=== PATIENT | female | born 1985 | race Caucasian/White ===

== ENCOUNTER 2017-12-23 11:24 | Outpatient (CLI) | payer OTHER ==
[2017-12-23] MEDS ORDERED: PREN1TAB69 PO (16:54)
[2017-12-23] MEDS ORDERED: METH10TA6 PO (16:56)
== END 2017-12-23 12:20 | disposition home or self-care (01) ==
LOC: LDOP 11:24
PROVIDERS: ATTEND Obstetrics & Gynecology Maternal & Fetal Medicine
DX: Z34.83 Encounter for supervision of other normal pregnancy, third trimester (principal); Z3A.40 40 weeks gestation of pregnancy
CPT/HCPCS: 59025; 99201; G0463

== ENCOUNTER 2017-12-23 15:18 | Inpatient (IN) | payer OTHER ==
[~2017-12-23] VITALS: Ht 165.1 cm; Wt 83.8 kg
[2017-12-23] MEDS ORDERED: NEWBORN KIT ONE (15:27)
[2017-12-23] MEDS ORDERED: OXYTOCIN 30U/ 0.9% NaCL 500ML 500 ML ONE ×2 (15:28→21:08)
[2017-12-23] MEDS ORDERED: LIDOCAINE 1%, 20ML ONE (15:28)
[2017-12-23] MEDS ORDERED: MISOPROSTOL 200 MCG TABLET ONE (15:28)
[2017-12-23] MEDS: LACTATED RINGERS 1,000 ML IV SCH ×2 (15:31→21:11)
[2017-12-23] MEDS ORDERED: OXYTOCIN 30U/ 0.9% NaCL 500ML 500 ML IV PRN ×2 (15:31→19:18)
[2017-12-23] MEDS ORDERED: D5%-LACTATED RINGERS 1,000 ML IV SCH (15:31)
[2017-12-23] MEDS ORDERED: AMPICILLIN 2 GM in SODIUM CHLORIDE 0.9% 100 ML IVPB STA (15:31)
[2017-12-23] MEDS ORDERED: OXYTOCIN 30U/ 0.9% NaCL 500ML 500 ML IV ONE (15:31)
[2017-12-23] MEDS ORDERED: FENTANYL PF 100 MCG/2ML ONE (15:37)
[2017-12-23 15:45] VITALS: BP 125/61
[2017-12-23 16:00] LABS: BASOPHILS # (AUTO) 0.06 x10^3/uL (0-0.1); BASOPHILS % (AUTO) 0 % (0-1); EOSINOPHILS % (AUTO) 0 % (1-7); LYMPHOCYTES # (AUTO) 2.17 x10^3/uL (1-3.4); LYMPHOCYTES % (AUTO) 14 % (22-44); MD NO; MEAN CORPUSCULAR HEMOGLOBIN 28.8 pg (27.0-34.8); MEAN CORPUSCULAR HGB CONC 33.3 g/dL (32.4-35.8); MEAN CORPUSCULAR VOLUME 86.4 fL (80-100); MEAN PLATELET VOLUME 8.6 fL (7.4-10.4); MONOCYTES % (AUTO) 6 % (2-9); NEUTROPHILS # (AUTO) 12.36 x10^3/uL (1.8-6.8); NEUTROPHILS % (AUTO) 80 % (42-75); PLATELET COUNT 280 x10^3/uL (130-400); RED CELL DISTRIBUTION WIDTH 12.9 % (9.6-15.2)
[2017-12-23] MEDS ORDERED: TERBUTALINE 1 MG/ML, 1ML SQ PRN (16:00)
[2017-12-23] MEDS ORDERED: FENTANYL PF 100 MCG/2ML IV PRN (16:00)
[2017-12-23] MEDS ORDERED: PLEASE ENTER HEIGHT AND WEIGHT MC SCH (16:00)
[2017-12-23] MEDS ORDERED: CALCIUM CARBONATE 500 MG TAB.CHEW PO PRN (16:00)
[2017-12-23] MEDS ORDERED: FENTANYL PF 100 MCG/2ML IVPush PRN (16:00)
[2017-12-23] MEDS ORDERED: ONDANSETRON 2MG/ML, 2ML IVPush PRN (16:00)
[2017-12-23] MEDS ORDERED: LIDOCAINE-MPF 2% ,5ML ONE (16:22)
[2017-12-23] MEDS ORDERED: FENTANYL/BUPIV./NS/PF 250 ML EPIDCONT ONE (16:23)
[2017-12-23] MEDS ORDERED: PREN1TAB69 PO (16:54)
[2017-12-23] MEDS ORDERED: LACTATED RINGERS 1,000 ML IV SCH (16:55)
[2017-12-23] MEDS ORDERED: FENTANYL/BUPIV./NS/PF 250 ML EPIDCONT SCH (16:55)
[2017-12-23] MEDS ORDERED: METH10TA6 PO (16:56)
[2017-12-23] MEDS ORDERED: LACTATED RINGERS 1,000 ML IVBOLUS PRN (17:00)
[2017-12-23] MEDS ORDERED: NALOXONE 0.4 MG/ML, 1ML IVPush PRN (17:00)
[2017-12-23] MEDS ORDERED: EPHEDRINE 50 MG/ML, 1ML IVPush PRN (17:00)
[2017-12-23] MEDS ORDERED: AMPICILLIN 1 GM in SODIUM CHLORIDE 0.9% 50 ML IVPB SCH (19:30)
[2017-12-23] MEDS ORDERED: ONDANSETRON 2MG/ML, 2ML ONE (19:36)
[2017-12-23] MEDS ORDERED: IBUPROFEN 600 MG TABLET ONE (21:08)
[2017-12-23] MEDS ORDERED: CALCIUM CARBONATE 500 MG TAB.CHEW ONE (22:12)
[2017-12-23] MEDS: IBUPROFEN 800 MG TABLET PO PRN (23:17)
[2017-12-23] MEDS ORDERED: IBUPROFEN 800 MG TABLET ONE (23:17)
[2017-12-23] MEDS: OXYTOCIN 30U/ 0.9% NaCL 500ML 500 ML IV SCH (23:18)
[2017-12-23] MEDS ORDERED: MISOPROSTOL 200 MCG TABLET SL PRN (23:30)
[2017-12-23] MEDS ORDERED: ACETAMINOPHEN 325 MG TABLET PO PRN (23:30)
[2017-12-23] MEDS ORDERED: OXYcodone IR 5MG TABLET PO PRN (23:30)
[2017-12-23] MEDS ORDERED: ONDANSETRON 2MG/ML, 2ML IV PRN (23:30)
[2017-12-23] MEDS ORDERED: DOCUSATE 100 MG CAPSULE PO PRN (23:30)
[2017-12-23] MEDS ORDERED: OXYcodone/APAP 5/325MG TABLET PO PRN (23:30)
[2017-12-24] VITALS (7 sets, daily range): BP systolic 103–120; BP diastolic 53–75
[2017-12-24] MEDS ORDERED: MISOPROSTOL 200 MCG TABLET PR PRN
[2017-12-24 05:36] LABS: MEAN CORPUSCULAR HEMOGLOBIN 29.7 pg (27.0-34.8); MEAN CORPUSCULAR VOLUME 87.3 fL (80-100); MEAN PLATELET VOLUME 9.3 fL (7.4-10.4); PLATELET COUNT 233 x10^3/uL (130-400); RED CELL DISTRIBUTION WIDTH 13.1 % (9.6-15.2)
[2017-12-24 06:21] LABS: MD YES
[2017-12-24 06:23] LABS: BAND#(MANUAL) 1.49 x10^3/uL; BANDS%(MANUAL) 8 % (0-7); LYMPH#(MANUAL) 2.23 x10^3/uL (1-3.4); LYMPHS% (MANUAL) 12 % (22-44); MONOS#(MANUAL) 0.74 x10^3/uL (0.3-2.7); MONOS% (MANUAL) 4 % (2-9); SEG#(MANUAL) 14.14 x10^3/uL (1.8-6.8); SEGS% (MANUAL) 76 % (42-75)
[2017-12-24 06:25] LABS: <PLATELET ESTIMATE> ADEQUATE; <PLT MORPHOLOGY> NORMAL PLT MORPH; ANISOCYTOSIS 1+
[2017-12-24] MEDS: IBUPROFEN 800 MG TABLET PO PRN ×2 (08:40→16:49)
[2017-12-24] MEDS ORDERED: PRENATAL VIT/IRON/FA 1 EACH TABLET PO SCH (09:00)
[2017-12-24] MEDS: OXYTOCIN 30U/ 0.9% NaCL 500ML 500 ML IV SCH ×2 (09:30→18:36)
[2017-12-24] MEDS ORDERED: FLU VACCINE PER PHARMACY IM ONE (16:00)
[2017-12-24] MEDS ORDERED: MEASLES,MUMPS&RUBELLA VACC/PF 0.5 ML SQ-VACC ONE (16:00)
[2017-12-24] MEDS ORDERED: DIPH,PERTUSS(ACELL),TET VAC/PF NC IM-VACC ONE (16:00)
[2017-12-24] MEDS ORDERED: FLU VACC QS2017-18 (36MOS+) UP/PF 0.5 ML IM-VACC ONE (17:00)
[2017-12-24] MEDS ORDERED: METHIMAZOLE 10 MG PO SCH (21:00)
[2017-12-25] MEDS: IBUPROFEN 800 MG TABLET PO PRN (02:14)
[2017-12-25] MEDS: OXYTOCIN 30U/ 0.9% NaCL 500ML 500 ML IV SCH (05:07)
[2017-12-25] MEDS ORDERED: IBUP-1222 PO (07:28)
[2017-12-25 07:45] VITALS: BP 97/60
== END 2017-12-25 09:00 | disposition home or self-care (01) | DRG 775 ==
LOC: LDOP 15:18 → LDIP 15:31 → 2NW 12-24 01:03
PROVIDERS: ADMIT Obstetrics & Gynecology Maternal & Fetal Medicine; ATTEND Obstetrics & Gynecology Maternal & Fetal Medicine
PROC: 10E0XZZ Delivery of Products of Conception, External Approach (ICD-10-PCS; principal; 2017-12-23)
PROC: 0KQM0ZZ Repair Perineum Muscle, Open Approach (ICD-10-PCS; 2017-12-23)
PROC: 3E0R3BZ Introduction of Anesthetic Agent into Spinal Canal, Percutaneous Approach (ICD-10-PCS; 2017-12-23)
PROC: 00HU33Z Insertion of Infusion Device into Spinal Canal, Percutaneous Approach (ICD-10-PCS; 2017-12-23)
PROC: 10907ZC Drainage of Amniotic Fluid, Therapeutic from Products of Conception, Via Natural or Artificial Opening (ICD-10-PCS; 2017-12-23)
DX: O24.429 Gestational diabetes mellitus in childbirth, unspecified control (principal); E05.90 Thyrotoxicosis, unspecified without thyrotoxic crisis or storm; O99.284 Endocrine, nutritional and metabolic diseases complicating childbirth; O70.1 Second degree perineal laceration during delivery; K90.0 Celiac disease; O75.89 Other specified complications of labor and delivery; Z37.0 Single live birth; Z3A.40 40 weeks gestation of pregnancy
CPT/HCPCS: 36415; 82962; 85025; 86850; 86900; 90686; 90715; J0290; J2405; J3010; J2590; J7120

== ENCOUNTER 2019-03-15 08:21 | Outpatient (CLI) | payer OTHER ==
[~2019-03-15 08:21] MED LIST: IBUP-1222 PO; METH10TA6 PO; PREN1TAB69 PO
== END 2019-03-15 23:59 | disposition home or self-care (01) ==
LOC: CARD 08:21
PROVIDERS: ATTEND Nurse Practitioner Family
DX: G56.03 Carpal tunnel syndrome, bilateral upper limbs (principal); G37.8 Other specified demyelinating diseases of central nervous system
CPT/HCPCS: 95886; 95908

== ENCOUNTER 2020-10-15 05:04 | Inpatient (IN) | payer OTHER ==
[~2020-10-15] VITALS: Ht 165.1 cm; Wt 85.9 kg
[2020-10-15] MEDS ORDERED: NEWBORN KIT ONE (05:09)
[2020-10-15] MEDS ORDERED: OXYTOCIN 30U/ 0.9% NaCL 500ML 500 ML ONE ×2 (05:09→13:29)
[2020-10-15] MEDS ORDERED: LIDOCAINE 1%, 20ML ONE (05:09)
[2020-10-15] MEDS ORDERED: MISOPROSTOL 200 MCG TABLET ONE ×2 (05:09)
[2020-10-15 05:24] VITALS: BP 134/60
[2020-10-15] MEDS ORDERED: FENTANYL PF 100 MCG/2ML IV PRN (05:30)
[2020-10-15] MEDS ORDERED: LEVO5TAB29 PO (05:30)
[2020-10-15] MEDS ORDERED: ONDANSETRON 2MG/ML, 2ML IVPush PRN (05:30)
[2020-10-15] MEDS ORDERED: FENTANYL PF 100 MCG/2ML IVPush PRN (05:30)
[2020-10-15] MEDS ORDERED: TERBUTALINE 1 MG/ML, 1ML IVPush PRN (05:30)
[2020-10-15] MEDS ORDERED: TERBUTALINE 1 MG/ML, 1ML SQ PRN (05:30)
[2020-10-15] MEDS ORDERED: OXYTOCIN 30U/ 0.9% NaCL 500ML 500 ML IV ONE (05:30)
[2020-10-15] MEDS ORDERED: OXYTOCIN 30U/ 0.9% NaCL 500ML 500 ML IV PRN (05:30)
[2020-10-15] MEDS: LACTATED RINGERS 1,000 ML IV SCH ×2 (05:47→08:12)
[2020-10-15 06:17] LABS: BASOPHILS % (AUTO) 0 % (0-1); EOSINOPHILS % (AUTO) 1 % (1-7); LYMPHOCYTES % (AUTO) 30 % (22-44); MEAN CORPUSCULAR HEMOGLOBIN 28.1 pg (27.0-34.8); MEAN CORPUSCULAR HGB CONC 33.3 g/dL (32.4-35.8); MEAN PLATELET VOLUME 9.4 fL (7.4-10.4); MONOCYTES % (AUTO) 7 % (2-9); NEUTROPHILS % (AUTO) 63 % (42-75); PLATELET COUNT 263 x10^3/uL (130-400); RED BLOOD COUNT 4.56 x10^6/uL (3.82-5.3); RED CELL DISTRIBUTION WIDTH 14.2 % (9.6-15.2)
[2020-10-15 06:18] LABS: MD NO
[2020-10-15] MEDS ORDERED: FENTANYL/BUPIV./NS/PF 250 ML EPIDCONT ONE (07:25)
[2020-10-15] MEDS ORDERED: BUPIVACAINE 0.25% ONE (07:26)
[2020-10-15] MEDS ORDERED: NALOXONE 0.4 MG/ML, 1ML IVPush PRN (07:30)
[2020-10-15] MEDS ORDERED: LACTATED RINGERS 1,000 ML IVBOLUS PRN (07:30)
[2020-10-15] MEDS ORDERED: EPHEDRINE 50 MG/ML, 1ML IVPush PRN (07:30)
[2020-10-15] MEDS ORDERED: FENTANYL/BUPIV./NS/PF 250 ML EPIDCONT SCH (07:30)
[2020-10-15] MEDS ORDERED: LACTATED RINGERS 1,000 ML IV SCH (07:30)
[2020-10-15] MEDS ORDERED: EPHEDRINE 50 MG/ML, 1ML ONE (07:57)
[2020-10-15] MEDS ORDERED: SIMETHICONE 80 MG CHEW TAB PO PRN (12:30)
[2020-10-15] MEDS ORDERED: MISOPROSTOL 200 MCG TABLET PR PRN (12:30)
[2020-10-15] MEDS ORDERED: CARBOPROST TROMETHAMINE 250 MCG/ML, 1ML IM PRN (12:30)
[2020-10-15] MEDS ORDERED: OXYcodone/APAP 5/325MG TABLET PO PRN ×2 (12:30)
[2020-10-15] MEDS ORDERED: DIPH,PERTUSS(ACELL),TET VAC/PF 0.5 ML IM-VACC PRN (12:30)
[2020-10-15] MEDS ORDERED: METHYLERGONOVINE 0.2 MG/ML IM PRN (12:30)
[2020-10-15] MEDS ORDERED: ACETAMINOPHEN 325 MG TABLET PO PRN ×2 (12:30)
[2020-10-15] MEDS: OXYTOCIN 30U/ 0.9% NaCL 500ML 500 ML IV SCH ×2 (13:34→19:06)
[2020-10-15] MEDS ORDERED: IBUPROFEN 600 MG TABLET ONE (13:35)
[2020-10-15] MEDS: IBUPROFEN 600 MG TABLET PO PRN ×2 (13:36→20:08)
[2020-10-15 14:15] VITALS: BP 97/60
[2020-10-15 20:00] VITALS: BP 123/77
[2020-10-15] MEDS: DOCUSATE 100 MG CAPSULE PO PRN (20:08)
[2020-10-15 20:28] LABS: BASOPHILS % (AUTO) 0 % (0-1); EOSINOPHILS % (AUTO) 0 % (1-7); LYMPHOCYTES % (AUTO) 20 % (22-44); MEAN PLATELET VOLUME 9.1 fL (7.4-10.4); MONOCYTES % (AUTO) 5 % (2-9); NEUTROPHILS % (AUTO) 74 % (42-75); PLATELET COUNT 235 x10^3/uL (130-400); RED BLOOD COUNT 4.25 x10^6/uL (3.82-5.3); RED CELL DISTRIBUTION WIDTH 14.8 % (9.6-15.2)
[2020-10-15 20:33] LABS: MD NO
[2020-10-16] VITALS: BP 107/71
[2020-10-16 04:11] VITALS: BP 110/68
[2020-10-16] MEDS: IBUPROFEN 600 MG TABLET PO PRN (05:13)
[2020-10-16 07:55] VITALS: BP 96/60
[2020-10-16] MEDS ORDERED: PRENATAL VIT/IRON/FA 1 EACH TABLET PO SCH (09:00)
[2020-10-16] MEDS: DOCUSATE 100 MG CAPSULE PO PRN (12:28)
== END 2020-10-16 13:15 | disposition home or self-care (01) | DRG 807 ==
LOC: LDIP 05:04 → 2NW 14:05
PROVIDERS: ADMIT Obstetrics & Gynecology Maternal & Fetal Medicine; ATTEND Obstetrics & Gynecology Maternal & Fetal Medicine
PROC: 10E0XZZ Delivery of Products of Conception, External Approach (ICD-10-PCS; principal; 2020-10-15)
PROC: 0HQ9XZZ Repair Perineum Skin, External Approach (ICD-10-PCS; 2020-10-15)
PROC: 3E0R3BZ Introduction of Anesthetic Agent into Spinal Canal, Percutaneous Approach (ICD-10-PCS; 2020-10-15)
PROC: 00HU33Z Insertion of Infusion Device into Spinal Canal, Percutaneous Approach (ICD-10-PCS; 2020-10-15)
DX: O69.81X0 Labor and delivery complicated by cord around neck, without compression, not applicable or unspecified (principal); Z37.0 Single live birth; O70.0 First degree perineal laceration during delivery; Z3A.39 39 weeks gestation of pregnancy; Z20.828 Contact with and (suspected) exposure to other viral communicable diseases
CPT/HCPCS: 36415; 85025; 86592; 86850; 86900; 87635; G0378; J2590; J3010; J7120